=== PATIENT | female | born 2000 | race Two or more races ===

== ENCOUNTER 2025-02-14 22:10 | Emergency (ER) | payer MEDICAID ==
[~2025-02-14] VITALS: Ht 165.1 cm; Wt 81.6 kg
[2025-02-14] MEDS ORDERED: ONDANSETRON HCL/PF 4 MG/2 ML VIAL ONE (23:28)
[2025-02-14] MEDS: IV NS 0.9% 500 ML BAG IV ONE (23:33)
[2025-02-14] MEDS: ONDANSETRON HCL/PF 4 MG/2 ML VIAL IVP ONE (23:33)
[2025-02-14 23:37] LABS: PLATELET COUNT (AUTO) 333 K/uL (150-450); RED BLOOD CELL COUNT(AUTO) 4.90 MIL/uL (4.0-5.2); RED CELL DISTRIBUTION WIDTH 14.3 % (11.5-15.0); WHITE BLOOD COUNT (AUTO) 12.9 K/uL (4.3-11.0)
[2025-02-14 23:40] LABS: APPEARANCE,URINE CLEAR (CLEAR); BLOOD, URINE TRACE-INTA Ery/uL (NEGATIVE); LEUKOCYTE ESTERASE ,URINE NEGATIVE (NEGATIVE); NITRITE, URINE NEGATIVE (NEGATIVE); UGLUCOSE NEGATIVE (NEGATIVE)
[2025-02-14 23:44] LABS: CALCIUM, SERUM 8.6 mg/dL (8.5-10.1); CREATININE 0.7 mg/dL (0.6-1.3); SODIUM SERUM 140.0 mmol/L (136-145); UREA NITROGEN, BLOOD 12.0 mg/dL (7-18)
[2025-02-14 23:48] LABS: ADD URINE CULTURE NO; PREGNANCY TEST URINE QUAL NEGATIVE (NEGATIVE)
[2025-02-14 23:49] LABS: ASPARTATE AMINOTRANSFERASE 13.0 U/L (15-37); INR 1.03 (0.91-1.10); TOTAL PROTEIN, SERUM 7.5 g/dL (6.4-8.2)
[2025-02-15] MEDS ORDERED: KETOROLAC TROMETHAMINE INJ 30 MG/ML VIAL ONE (00:07)
[2025-02-15] MEDS: KETOROLAC TROMETHAMINE INJ 30 MG/ML VIAL IV ONE (00:16)
[2025-02-15 02:31] VITALS: BP 121/79; TEMP 98; O2SAT 100
== END 2025-02-15 02:32 | disposition home or self-care (01) ==
LOC: ER 22:18
DX: R10.9 Unspecified abdominal pain (principal); R11.0 Nausea; N81.89 Other female genital prolapse
CPT/HCPCS: 99285; 96374; 85025; 80048; 83690; 80076; 84703; 81001; 36415; 85730; 74176; 96375; J2405; J1885